=== PATIENT | male | born 1990 | race Caucasian/White ===

== ENCOUNTER 2018-01-06 20:58 | Emergency (ER) | payer SELFPAY ==
[~2018-01-06] VITALS: Ht 193 cm; Wt 88.5 kg
--- NOTE | 2018-01-06 21:04 | NUR ---
PT AMBULATORY TO ER BED 1. SINCE 1800 VERY ANXIOUS, SHAKY, HANDS TINGLING. PT TOOK ADDERALL YESTERDAY. PT PLACED IN ON [employer]GRAMMER. VSS/RESP EVEN UNLABORED/NAD NOTED/SKIN WARM AND DRY/AFEBRILE/DENIES N-V-D/AOX4. AWAITNG MD PATTEN.
[2018-01-06] MEDS ORDERED: LORAZEPAM INJ 2 MG/ML VIAL IV ONE (21:30)
[2018-01-06] MEDS ORDERED: ONDANSETRON HCL/PF 4 MG/2 ML VIAL IV ONE (21:30)
[2018-01-06] MEDS ORDERED: IV NS 0.9% 1,000 ML BAG IV ONE (21:30)
--- NOTE | 2018-01-06 21:35 | NUR ---
EMT AT BEDSIDE FOR EKG.
--- NOTE | 2018-01-06 21:37 | NUR ---
LAB AT BEDSIDE FOR DRAW.
[2018-01-06] MEDS ORDERED: ONDANSETRON HCL/PF 4 MG/2 ML VIAL ONE (21:41)
[2018-01-06] MEDS ORDERED: LORAZEPAM INJ 2 MG/ML VIAL ONE (21:42)
[2018-01-06 21:45] LABS: BASOPHILS # (AUTO) 0.3 /CMM (0.0-0.2); BASOPHILS % (AUTO) 3.2 % (0.0-2.0); EOSINOPHILS % (AUTO) 2.1 % (0.0-6.0); HEMATOCRIT 45 % (39-51); HEMOGLOBIN 15.2 g/dL (13.5-17.5); LYMPHOCYTES % (AUTO) 10.7 % (20.0-44.0); MEAN CORPUSCULAR HEMOGLOBIN 30 PG (26.0-33.0); MEAN CORPUSCULAR HGB CONC 34 g/dl (31.0-36.0); MEAN CORPUSCULAR VOLUME 90 fL (80-96); MONOCYTES # (AUTO) 0.7 /CMM (0.1-1.30); MONOCYTES % (AUTO) 7.6 % (2.0-12.0); NEUTROPHILS # (AUTO) 6.9 /CMM (1.8-8.9); NEUTROPHILS % (AUTO) 76.4 % (43.0-81.0); PLATELET COUNT (AUTO) 355 /CMM (150-450); RDW COEFFICIENT OF VARIATION 12.5 (11.5-15.0); RED BLOOD CELL COUNT(AUTO) 5.03 MIL/uL (4.5-6.0); WHITE BLOOD COUNT (AUTO) 9.1 K/uL (4.3-11.0)
--- NOTE | 2018-01-06 21:48 | NUR ---
18G IV TO L AC X 1 ATTEMPT USING ASEPTIC TECH. IV FLUSHES EASILY WITH NS, NO S/S INFILTRATION NOTED AT THIS TIME.
[2018-01-06 21:53] LABS: CALCIUM, SERUM 9.9 mg/dL (8.5-10.1); CARBON DIOXIDE 24 mmol/L (21-32); CHLORIDE 99 mmol/L (98-107); CREATININE 1.3 mg/dL (0.6-1.3); GLUCOSE 110 mg/dL (74-106); POTASSIUM 3.3 mmol/L (3.5-5.1); SODIUM SERUM 137 mmol/L (136-145); UREA NITROGEN, BLOOD 14 mg/dL (7-18)
[2018-01-06 21:58] LABS: ALANINE AMINOTRANSFERASE 42 U/L (12-78); ALBUMIN 4.4 g/dL (3.4-5.0); ALKALINE PHOSPHATASE 82 U/L (46-116); ASPARTATE AMINOTRANSFERASE 33 U/L (15-37); BILIRUBIN,DIRECT 0.3 mg/dL (0.0-0.2); BILIRUBIN,TOTAL 1.1 mg/dL (0.2-1.0); LIPASE 136 U/L (73-393); TOTAL PROTEIN, SERUM 8.5 g/dL (6.4-8.2)
[2018-01-06 22:00] LABS: TROPONIN I < 0.017 ng/mL (0.00-0.056)
--- NOTE | 2018-01-06 22:33 | NUR ---
IV removed. Catheter intact and site benign. Pressure and 4x4 applied to site. No bleeding noted. Patient discharged with friend to home in stable condition. Written and verbal after care instructions given, patient instructed not to drive. Patient verbalizes understanding of instruction. Patient is awake and alert to self, day, and place. Patient ambulatory with a steady gait.
[2018-01-06 22:34] VITALS: BP 143/87
== END 2018-01-06 22:34 | disposition home or self-care (01) ==
LOC: ER 21:00
DX: F41.9 Anxiety disorder, unspecified (principal); Z60.2 Problems related to living alone
CPT/HCPCS: 36415; 80048; 80076; 83690; 84484; 85025; 93005; 96374; 96375; 99285; A4606; G0480; J2060; J2405; J7030 ×2; Z7610

== ENCOUNTER 2019-02-26 01:42 | Emergency (ER) | payer OTHER ==
[~2019-02-26] VITALS: Ht 193 cm; Wt 90.7 kg
[2019-02-26 01:52] VITALS: BP 141/91
--- NOTE | 2019-02-26 02:08 | NUR ---
SEEN AND EXAMINED BY .
[2019-02-26] MEDS ORDERED: LORAZEPAM 1 MG TABLET ONE (02:14)
[2019-02-26] MEDS ORDERED: LORAZEPAM 1 MG TABLET PO ONE (02:30)
== END 2019-02-26 03:13 | disposition home or self-care (01) ==
LOC: ER 01:44
DX: F41.9 Anxiety disorder, unspecified (principal); F10.10 Alcohol abuse, uncomplicated; Y90.9 Presence of alcohol in blood, level not specified; Z60.2 Problems related to living alone

== ENCOUNTER 2019-06-10 17:37 | Emergency (ER) | payer OTHER ==
[~2019-06-10] VITALS: Ht 193 cm; Wt 95.3 kg
[2019-06-10] MEDS ORDERED: LORAZEPAM 1 MG TABLET ONE ×2 (17:57→18:31)
[2019-06-10] MEDS ORDERED: LORAZEPAM 1 MG TABLET PO ONE ×2 (18:00→19:00)
--- NOTE | 2019-06-10 18:02 | NUR ---
patient came in to the er c/o panic attack x 3 days, on room air, breathing unlabored. connected to the monitor and pulse ox. kept comfortable will continue to monitor accordingly.
[2019-06-10 18:58] VITALS: BP 129/81
--- NOTE | 2019-06-10 18:59 | NUR ---
Patient discharged to home in stable condition. Written and verbal after care instructions given. Patient verbalizes understanding of instruction.
== END 2019-06-10 18:59 | disposition home or self-care (01) ==
LOC: ER 17:37
DX: F41.9 Anxiety disorder, unspecified (principal); Z60.2 Problems related to living alone

== ENCOUNTER 2020-05-24 21:25 | Emergency (ER) | payer MEDICAID, OTHER ==
[~2020-05-24] VITALS: Ht 193 cm; Wt 90.7 kg
--- NOTE | 2020-05-24 21:58 | NUR ---
Pt bibself c/o a panic attack x3 days. Pt aaox4 appears restless, unable to sit still. Pt breathing evenly and unlabored. Pt states that he has "not been able to sleep or keep food or water down and has been very shaky". Pt attached to monitor and pox. Pt kept comfortable with call light within reach. Will continue to monitor.
[2020-05-24] MEDS ORDERED: LORAZEPAM 1 MG TABLET ONE (22:19)
[2020-05-24] MEDS ORDERED: LORAZEPAM 1 MG TABLET PO ONE (22:30)
[2020-05-24] MEDS ORDERED: ONDANSETRON 4 MG TAB.RAPDIS ONE (23:11)
--- NOTE | 2020-05-24 23:24 | NUR ---
Pt is medically stbale for d/c. Patient discharged to home in stable condition. Rx and Written and verbal after care instructions given. Patient verbalizes understanding of instruction.
[2020-05-24] MEDS ORDERED: ONDANSETRON 4 MG TAB.RAPDIS SL ONE (23:30)
[2020-05-24 23:39] VITALS: BP 137/76
== END 2020-05-24 23:40 | disposition home or self-care (01) ==
LOC: ER 21:28
DX: F41.9 Anxiety disorder, unspecified (principal)
CPT/HCPCS: 99283; Q0162

== ENCOUNTER 2020-09-27 16:18 | Emergency (ER) | payer MEDICAID ==
[~2020-09-27] VITALS: Ht 193 cm; Wt 95.3 kg
[2020-09-27 16:40] VITALS: BP 149/107
[2020-09-27] MEDS ORDERED: LORA-259 PO (16:59)
[2020-09-27] MEDS ORDERED: IBUP-1955 PO (16:59)
--- NOTE | 2020-09-27 17:10 | NUR ---
crutches provided, gait training done. Patient a/ox4, ambulatory with crutches,. Patient discharged to home in stable condition. Written and verbal after care instructions given. Patient verbalizes understanding of instruction.
== END 2020-09-27 17:11 | disposition home or self-care (01) ==
LOC: ER 16:37
DX: M25.561 Pain in right knee (principal); M25.562 Pain in left knee; F41.9 Anxiety disorder, unspecified; Z79.899 Other long term (current) drug therapy; W01.0XXA Fall on same level from slipping, tripping and stumbling without subsequent striking against object, initial encounter; Y93.89 Activity, other specified; Y92.89 Other specified places as the place of occurrence of the external cause; Y99.8 Other external cause status